=== PATIENT | female | born 1995 | race Hispanic/Latino ===

== ENCOUNTER 2025-02-25 22:28 | Inpatient (IN) | payer OTHER ==
[~2025-02-25] VITALS: Ht 162.6 cm; Wt 56.2 kg
[2025-02-25 22:30] VITALS: TEMP 98.1
[2025-02-25 23:11] LABS: BASOPHILS # (AUTO) 0.1 (0.0-0.1); BASOPHILS % 0.7 % (0.0-1.0); EOSINOPHILS # (AUTO) 0.1 (0.0-0.4); EOSINOPHILS % 1.3 % (0.0-6.0); HEMATOCRIT 38.2 % (34.2-44.1); HEMOGLOBIN 12.4 g/dL (12.0-16.0); LYMPHOCYTES # (AUTO) 2.6 (1.0-3.2); MEAN CORPUSCULAR HEMOGLOBIN 25.9 pg (28-32); MEAN CORPUSCULAR HGB CONC 32.5 g/dL (31-35); MEAN CORPUSCULAR VOLUME 79.7 fL (81-99); MONOCYTES # (AUTO) 0.7 (0.2-0.8); MONOCYTES % 8.9 % (4.4-11.3); NEUTROPHILS # (AUTO) 4.2 (2.1-6.9); NEUTROPHILS % 54.8 % (38.7-80.0); PLATELET COUNT 225 x10e3/uL (140-360); RED BLOOD COUNT 4.79 x10e6/uL (3.6-5.1); RED CELL DISTRIBUTION WIDTH 14.6 % (11.7-14.4); WHITE BLOOD COUNT 7.62 x10e3/uL (4.8-10.8)
[2025-02-25 23:20] LABS: AMPHETAMINES SCREEN,URINE NEGATIVE (NEGATIVE); BENZODIAZEPINES SCREEN,URINE NEGATIVE (NEGATIVE); CANNABINOIDS SCREEN,URINE NEGATIVE (NEGATIVE); CLARITY,URINE CLEAR (CLEAR); COCAINE SCREEN,URINE NEGATIVE (NEGATIVE); COLOR,URINE YELLOW (YELLOW); GLUCOSE, URINE NEGATIVE (NEGATIVE); KETONES,URINE NEGATIVE (NEGATIVE); LEUKOCYTE ESTERASE ,URINE SMALL (NEGATIVE); METHADONE SCREEN, URINE NEGATIVE (NEGATIVE); NITRITE,URINE NEGATIVE (NEGATIVE); OPIATES SCREEN,URINE NEGATIVE (NEGATIVE); PH,URINE 6 (5 - 7); PHENCYCLIDINE SCREEN,URINE NEGATIVE (NEGATIVE); PROTEIN,URINE DIPSTICK NEGATIVE (NEGATIVE)
[2025-02-25 23:21] LABS: BILIRUBIN,URINE NEGATIVE (NEGATIVE); PREGNANCY TEST, URINE NEGATIVE (NEGATIVE); URINE UROBILINOGEN 0.2 mg/dL (0.2 - 1)
[2025-02-25 23:39] LABS: BACTERIA,URINE MANY /HPF; EPITHELIAL CELLS,URINE MODERATE /LPF
[2025-02-25 23:40] LABS: WBC,URINE (MAN) 21-50 /HPF (0-5)
[2025-02-25 23:52] LABS: ALBUMIN 4.4 g/dL (3.5-5.0); ALBUMIN/GLOBULIN RATIO 1.1 (0.8-2.0); ANION GAP 14.7 mmol/L (8-16); BILIRUBIN,TOTAL 0.5 mg/dL (0.2-1.2); CALCIUM 11.1 mg/dL (8.4-10.2); CREATININE, SERUM 0.95 mg/dL (0.57-1.11); POTASSIUM 3.7 mmol/L (3.5-5.1); TOTAL PROTEIN 8.5 g/dL (6.5-8.1)
[2025-02-26] VITALS (12 sets, daily range): BP systolic 98–105; BP diastolic 54–82; PULSE 55–83; RESP 17–20; TEMP 97.9–98.5; O2SAT 97–100
[2025-02-26] MEDS ORDERED: ONDANSETRON HCL INJ 2MG/ML 2ML 2 MG/ML VIAL IV PRN (00:45)
[2025-02-26 01:48] LABS: TROPONIN I < 0.05 ng/mL (0.0-0.40)
[2025-02-26 02:18] LABS: CREATINE KINASE 39 IU/L (29-168)
[2025-02-26 02:55] LABS: FREE THYROXINE INDEX 2.0098 (1.4-3.8); T3 UPTAKE 27.42 % (22.5-37.0); THYROID STIMULATING HORMONE 0.886 uIU/mL (0.350-4.940)
[2025-02-26 03:25] LABS: T4 (THYROXINE) 7.33 ug/dL (4.5-10.9)
[2025-02-26] MEDS ORDERED: FAMOTIDINE 20 MG TAB PO PRN (06:45)
[2025-02-26] MEDS ORDERED: ONDANSETRON HCL 4 MG ORAL DISINTEGRATING TAB PO PRN (06:45)
[2025-02-26] MEDS ORDERED: MELATONIN 5 MG TABLET PO PRN (06:45)
[2025-02-26] MEDS: SODIUM CHLORIDE 0.9% 1000ML 1,000 ML IV SCH (08:36)
[2025-02-26] MEDS ORDERED: NO HOME MEDS (11:47)
[2025-02-26 13:03] LABS: TROPONIN I 0.002 ng/mL (0-0.300)
[2025-02-26] MEDS: FLECAINIDE ACETATE 100 MG TAB PO SCH (15:11)
[2025-02-27] VITALS (9 sets, daily range): BP systolic 95–113; BP diastolic 63–75; PULSE 55–79; RESP 18–20; TEMP 97.4–98.3; O2SAT 97–100
[2025-02-27 05:42] LABS: BASOPHILS # (AUTO) 0.1 (0.0-0.1); BASOPHILS % 0.9 % (0.0-1.0); EOSINOPHILS # (AUTO) 0.1 (0.0-0.4); HEMATOCRIT 39.3 % (34.2-44.1); HEMOGLOBIN 12.3 g/dL (12.0-16.0); LYMPHOCYTES # (AUTO) 2.8 (1.0-3.2); LYMPHOCYTES % 40.3 % (18.0-39.1); MEAN CORPUSCULAR HEMOGLOBIN 25.8 pg (28-32); MEAN CORPUSCULAR HGB CONC 31.3 g/dL (31-35); MEAN CORPUSCULAR VOLUME 82.6 fL (81-99); MONOCYTES # (AUTO) 0.6 (0.2-0.8); MONOCYTES % 8.9 % (4.4-11.3); NEUTROPHILS # (AUTO) 3.3 (2.1-6.9); NEUTROPHILS % 47.8 % (38.7-80.0); PLATELET COUNT 201 x10e3/uL (140-360); RED BLOOD COUNT 4.76 x10e6/uL (3.6-5.1); RED CELL DISTRIBUTION WIDTH 14.6 % (11.7-14.4); WHITE BLOOD COUNT 6.93 x10e3/uL (4.8-10.8)
[2025-02-27 06:16] LABS: ALBUMIN 3.8 g/dL (3.5-5.0); ALBUMIN/GLOBULIN RATIO 0.9 (0.8-2.0); ANION GAP 13.3 mmol/L (8-16); BILIRUBIN,TOTAL 0.3 mg/dL (0.2-1.2); CALCIUM 9.6 mg/dL (8.4-10.2); CREATININE, SERUM 0.69 mg/dL (0.57-1.11); POTASSIUM 4.3 mmol/L (3.5-5.1); TOTAL PROTEIN 7.9 g/dL (6.5-8.1)
[2025-02-27 06:31] LABS: CHOL/HDL RATIO 2.2 (3.0-3.6)
[2025-02-27 07:02] LABS: TROPONIN I 0.008 ng/mL (0-0.300)
[2025-02-27] MEDS: SODIUM CHLORIDE 0.9% 1000ML 1,000 ML IV SCH (09:06)
[2025-02-27] MEDS: MAGNESIUM SULFATE 2GM/50ML 50 ML IV ONE (16:47)
[2025-02-27] MEDS: FLECAINIDE ACETATE 100 MG TAB PO SCH (21:13)
[2025-02-28] VITALS: BP 105/64; PULSE 73; RESP 18; TEMP 98.1; O2SAT 100
[2025-02-28 04:00] VITALS: BP 107/69; PULSE 67; RESP 18; TEMP 98.2; O2SAT 100
[2025-02-28 06:04] LABS: BASOPHILS # (AUTO) 0.1 (0.0-0.1); BASOPHILS % 0.7 % (0.0-1.0); EOSINOPHILS # (AUTO) 0.2 (0.0-0.4); EOSINOPHILS % 2.6 % (0.0-6.0); HEMATOCRIT 35.5 % (34.2-44.1); HEMOGLOBIN 11.1 g/dL (12.0-16.0); LYMPHOCYTES # (AUTO) 2.5 (1.0-3.2); LYMPHOCYTES % 35.6 % (18.0-39.1); MEAN CORPUSCULAR HEMOGLOBIN 25.6 pg (28-32); MEAN CORPUSCULAR HGB CONC 31.3 g/dL (31-35); MEAN CORPUSCULAR VOLUME 81.8 fL (81-99); MONOCYTES # (AUTO) 0.6 (0.2-0.8); MONOCYTES % 8.4 % (4.4-11.3); NEUTROPHILS # (AUTO) 3.7 (2.1-6.9); NEUTROPHILS % 52.4 % (38.7-80.0); PLATELET COUNT 182 x10e3/uL (140-360); RED BLOOD COUNT 4.34 x10e6/uL (3.6-5.1); RED CELL DISTRIBUTION WIDTH 14.7 % (11.7-14.4); WHITE BLOOD COUNT 7.03 x10e3/uL (4.8-10.8)
[2025-02-28 06:22] LABS: ALBUMIN 3.6 g/dL (3.5-5.0); ANION GAP 11.9 mmol/L (8-16); BILIRUBIN,TOTAL 0.3 mg/dL (0.2-1.2); CALCIUM 9.5 mg/dL (8.4-10.2); CREATININE, SERUM 0.63 mg/dL (0.57-1.11); POTASSIUM 3.9 mmol/L (3.5-5.1); TOTAL PROTEIN 7.1 g/dL (6.5-8.1)
[2025-02-28 06:45] LABS: PHOSPHORUS 3.2 MG/DL (2.3-4.7)
[2025-02-28 08:41] VITALS: BP 107/54; PULSE 70; RESP 18; TEMP 98.5; O2SAT 100
[2025-02-28 09:00] VITALS: BP 107/54; PULSE 70; RESP 18; TEMP 98.5; O2SAT 100
[2025-02-28 11:40] VITALS: BP 100/74; PULSE 75; RESP 18; TEMP 98.1; O2SAT 100
[2025-02-28] MEDS: ACETAMINOPHEN 325 MG TAB PO PRN (16:12)
[2025-02-28 16:23] VITALS: BP 95/56; PULSE 87; RESP 18; TEMP 97.9; O2SAT 100
[2025-02-28] MEDS ORDERED: FLECAINIDE ACE100 MG PO (16:50)
== END 2025-02-28 18:10 | disposition home or self-care (01) | DRG 309 ==
LOC: ER 23:53 → ERHOLD 02-26 00:37 → MED/SURG3 02-26 01:50 → OBSVTOIN 02-26 06:35
PROVIDERS: ADMIT Family Medicine Adult Medicine; ATTEND Family Medicine Adult Medicine
DX: I49.3 Ventricular premature depolarization (principal); N39.0 Urinary tract infection, site not specified; R42 Dizziness and giddiness; R00.2 Palpitations; I08.1 Rheumatic disorders of both mitral and tricuspid valves; R55 Syncope and collapse; E86.0 Dehydration; Z90.49 Acquired absence of other specified parts of digestive tract
CPT/HCPCS: 36415; 71045; 80053; 80061; 80307; 81001; 81025; 82550; 83735; 84100; 84436; 84443; 84479; 84484; 85025; 87086; 93005; 93306; 94799; 99284; J0696; J3475; J7030